=== PATIENT | female | born 1990 | race American Indian/Alaskan Native ===

== ENCOUNTER 2020-08-14 16:43 | Inpatient (IN) | payer SELFPAY ==
[~2020-08-14 16:43] MED LIST: AMIODARONE 150 MG/3 ML INJ IV ONE; CALCIUM CHLORIDE 1,000 MG/10 ML SYRINGE IV ONE; DOPamine/D5W 800 MG/250 ML DRIP IV ONE; EPINEPHrine 1 MG/10 ML SYRINGE IV ONE; EPINEPHrine 1 MG/10 ML SYRINGE ONE; NALOXONE 2 MG/2 ML INJ ONE; SODIUM BICARB 8.4% 50 MEQ/50 ML SYRINGE IV ONE
[2020-08-14] MEDS ORDERED: EPINEPHrine 1 MG/10 ML SYRINGE IV ONE ×3 (16:54→20:08)
[2020-08-14] MEDS ORDERED: DOPamine/D5W 800 MG/250 ML 800 MG/250 ML BAG IV ONE (17:29)
[2020-08-14 17:52] LABS: Mean Corpuscular HGB Conc 29 % (30-34); Mean Corpuscular Volume 91 fl (79-97); Platelet Count 135 K/mm3 (140-440); Red Blood Count 5.01 M/mm3 (3.65-5.03)
[2020-08-14 18:01] LABS: Hematocrit 45.5 % (30.3-42.9); Hemoglobin 13.4 gm/dl (10.1-14.3)
[2020-08-14 18:15] LABS: Albumin 3.9 g/dL (3.9-5); Calcium 11.5 mg/dL (8.4-10.2)
--- NOTE | 2020-08-14 18:22 | XRay Report ---
XR chest 1V ap INDICATION / CLINICAL INFORMATION: intubation. COMPARISON: None available. FINDINGS: SUPPORT DEVICES: Endotracheal tube projects 7 cm above the gosia. HEART /PULMONARY VASCULATURE: No significant abnormality. LUNGS / PLEURA: Asymmetric airspace opacity within the left upper lung. Right lung is clear. No pleur al effusion. No pneumothorax. IMPRESSION: 1. Endotracheal tube projects 7 cm above the gosia. Consider advancement by approximately 3 cm. 2. Asymmetric airspace opacity within the left upper lung, may reflect atelectasis, edema or infiltra te. Signer Name: Erlin Gaming MD Signed: 08/14/2020 6:18 PM Workstation Name: [id number]
[2020-08-14] MEDS ORDERED: HEPARIN 10,000 UNITS/10 ML VIAL IV PRN ×2 (18:23→21:03)
[2020-08-14] MEDS ORDERED: SODIUM BICARB 8.4% 50 MEQ/50 ML SYRINGE IV ONE (18:26)
[2020-08-14] MEDS ORDERED: NALOXONE 2 MG/2 ML INJ IV ONE (18:31)
--- NOTE | 2020-08-14 18:41 | Emergency Department Report ---
ED General Adult HPI - General Chief complaint: Cardiac Arrest/CPR Stated complaint: CARDIAC ARREST Time Seen by Provider: 08/14/20 17:03 Source: EMS Mode of arrival: Stretcher Limitations: Other - History of Present Illness Initial comments: The patient presents to the emergency department via EMS status post cardiac arrest. Per EMS the call was made for unresponsive patient. Patient had discussed with her roommate that she was not feeling well and went to take a shower when the roommate noticed that she was in the shower for an extended period of time. The roommate went to check on the patient and found her passed out in the shower and unresponsive. Upon EMS arrival which is 20 minutes after the patient initially was found the patient was in V. tach thus the patient was shocked. Patient received 5 rounds of epinephrine and additional shock and had return of spontaneous circulation and was intubated upon arrival to the ED. -: Sudden Severity scale (0 -10): 0 Consistency: constant Improves with: none Worsens with: none Treatments Prior to Arrival: other (Intubation, chest compressions) - Related Data Allergies Allergy/AdvReac Type Severity Reaction Status Date / Time No Known Allergies Allergy Unverified 08/14/20 18:10 ED Review of Systems ROS: Stated complaint: CARDIAC ARREST Other details as noted in HPI Comment: Unobtainable due to pts medical conditions ED Past Medical Hx - Social History Smoking Status: Unknown if ever smoked ED Physical Exam - General Limitations: Other General appearance: other (Intubated) - Head Head exam: Present: atraumatic, normocephalic - Eye Eye exam: Present: other (No corneal reflex; pupils dilated). Absent: scleral icterus, conjunctival injection - ENT ENT exam: Present: mucous membranes moist - Neck Neck exam: Absent: lymphadenopathy - Respiratory Respiratory exam: Present: other (Breath sounds present bilaterally with bagging through ET tube) - Cardiovascular Cardiovascular Exam: Present: regular rate, normal rhythm, other - GI/Abdominal GI/Abdominal exam: Present: soft. Absent: distended - Extremities Exam Extremities exam: Absent: pedal edema - Neurological Exam Neurological exam: Present: other (3T) - Psychiatric Psychiatric exam: Present: other (Not able to assess due to the patient's condition) - Skin Skin exam: Present: dry, intact, normal color, other (Patient is cool to touch). Absent: warm, rash ED Course Vital Signs 08/14/20 08/14/20 08/14/20 16:42 16:43 16:46 Temperature 90 F L Pulse Rate 98 H 105 H Respiratory 14 9 L Rate Blood Pressure 106/89 106/89 Blood Pressure [Right] O2 Sat by Pulse Oximetry 08/14/20 08/14/20 08/14/20 17:00 17:16 17:30 Temperature Pulse Rate 103 H 103 H 106 H Respiratory 16 18 18 Rate Blood Pressure 171/128 171/128 67/31 Blood Pressure [Right] O2 Sat by Pulse 96 98 Oximetry 08/14/20 08/14/20 08/14/20 17:45 18:01 18:15 Temperature Pulse Rate 107 H 110 H 109 H Respiratory 18 14 0 L Rate Blood Pressure 130/101 76/35 108/45 Blood Pressure [Right] O2 Sat by Pulse 100 100 100 Oximetry 08/14/20 08/14/20 08/14/20 18:16 18:21 18:23 Temperature Pulse Rate 109 H 110 H Respiratory 18 18 Rate Blood Pressure 99/44 Blood Pressure 100/43 [Right] O2 Sat by Pulse 100 100 100 Oximetry 08/14/20 08/14/20 08/14/20 18:31 18:45 19:01 Temperature Pulse Rate 109 H 106 H 105 H Respiratory 16 18 18 Rate Blood Pressure 97/36 76/31 65/29 Blood Pressure [Right] O2 Sat by Pulse 100 100 100 Oximetry 08/14/20 08/14/20 08/14/20 19:35 19:45 20:01 Temperature Pulse Rate 105 H 107 H 92 H Respiratory 18 17 13 Rate Blood Pressure 64/31 58/23 49/21 Blood Pressure [Right] O2 Sat by Pulse 88 92 Oximetry 08/14/20 08/14/20 08/14/20 20:15 20:31 20:45 Temperature Pulse Rate 119 H 112 H 110 H Respiratory 24 18 15 Rate Blood Pressure 204/107 74/31 64/25 Blood Pressure [Right] O2 Sat by Pulse 92 97 100 Oximetry 08/14/20 08/14/20 08/14/20 21:01 21:15 21:31 Temperature Pulse Rate 108 H 118 H 117 H Respiratory 16 12 14 Rate Blood Pressure 56/28 57/42 94/30 Blood Pressure [Right] O2 Sat by Pulse 98 90 90 Oximetry 08/14/20 08/14/20 08/14/20 21:45 22:00 22:13 Temperature Pulse Rate 118 H 115 H 73 Respiratory 16 8 L Rate Blood Pressure 69/34 58/32 146/127 Blood Pressure [Right] O2 Sat by Pulse 94 89 86 Oximetry 08/14/20 08/14/20 08/14/20 22:15 22:31 22:45 Temperature Pulse Rate 114 H 74 129 H Respiratory 18 18 74 H Rate Blood Pressure 72/29 146/127 158/14 Blood Pressure [Right] O2 Sat by Pulse 89 89 69 L Oximetry - Central Line Placement Right Femoral Consent Obtained: verbal consent Time Out Performed: Yes MD Prep: mask, gown, gloves Central Line Prep: Chlorhexidine scrub Ultrasound Used for Placement: No Central Line Lumen Inserted: triple Reason for Insertion: Emergency Venous Access Central Line Position: good blood return, all ports aspirated, flus, sutured in place with 2-0 Dressing Applied: Tegaderm Patient Tolerated Procedure: well Complications: none ED Medical Decision Making - Lab Data Result diagrams: 08/14/20 21:21 08/14/20 20:20 Patient arrived to the emergency department with a pulse and proceeded to lose her pulse 3 times during her initial presentation resuscitation. Each episode of pulselessness was followed by return of spontaneous circulation. Please see code sheet for details. Dopamine drip was started - EKG Data -: EKG Interpreted by Ok Rate: tachycardia - EKG Data Interpretation: other (Atrial flutter, PVCs, nonspecific ST-T wave a bnormalities) - Radiology Data Radiology results: report reviewed - Medical Decision Making On patient's arrival the patient was intubated by EMS and had a pulse The patient coded 5 times in the ED In between the patient had return of spontaneous circulation CT of the chest was obtained that showed that the patient had right-sided PEs and right-sided pneumonia. Discussed the patient with Dr. Hancock for evaluation of EKOS but due to the patient's finding on CT and her stability we decided that the patient was not a candidate for that procedure. After review of the patient's CTA of the chest patient was admitted to the hospitalist. Orders were written for the patient to be admitted upstairs the patient unfortunately coded again The family was allowed to come back to see the patient and were present during times when the patient was pulseless Please see code sheet for further details Patient received a bolus of TPA after discussion with the mom and dad Time of was 2254 Critical Care Time: Yes Critical care time in (mins) excluding proc time.: 120 Critical care attestation.: If time is entered above; I have spent that time in minutes in the direct care of this critically ill patient, excluding procedure time. Critical Care Time: Critical care time spent speaking to multiple family members about the patient as well as multiple specialist. Patient coded at least 8 times in the emergency department ED Disposition Clinical Impression: Cardiac arrest, Pulmonary embolus, Pneumonia, Elevated troponin Disposition: DC-20 Is pt being admited?: No Does the pt Need Aspirin: No Condition: Critical
[2020-08-14 18:42] LABS: Anisocytosis Few; Total Cells Counted 100
[2020-08-14] MEDS ORDERED: NORepinephrine/NS 4 MG-250 ML 4 MG/250 ML BAG IV ONE (18:44)
[2020-08-14 18:45] LABS: Chol/HDL Ratio 2.28 %
[2020-08-14] MEDS ORDERED: NORepinephrine/NS 4 MG-250 ML 4 MG/250 ML BAG IV SCH (19:00)
[2020-08-14 19:10] LABS: INR > 17.67 (0.87-1.13); Partial Thromboplastin Time < 20.0 Sec. (24.2-36.6)
--- NOTE | 2020-08-14 19:58 | Cat Scan Report ---
CT head/brain wo con INDICATION / CLINICAL INFORMATION: 29 years Female; Post cardiac arrest. TECHNIQUE: Routine CT head without contrast. All CT scans at this location are performed using CT dos e reduction for ALARA by means of automated exposure control. COMPARISON: None. FINDINGS: BRAIN / INTRACRANIAL CONTENTS: There is diffuse a cerebral edema with notable loss of the pan-white matter differentiation in effacement of the cerebral sulci. Additionally, there is also notable effac ement of the basal cisterns worrisome for developing herniation. The diffuse edema results in relative increased attenuation projected along the vascular structures. There is no clear CT evidence of acute intracranial hemorrhage. ORBITS: No significant abnormality of visualized orbits. SINUSES / MASTOIDS: The patient is intubated with associated opacification of the visualized nasal ca vities. There is a small air-fluid level along the posterior right sphenoid sinus. CRANIOCERVICAL JUNCTION: No significant abnormality. ADDITIONAL FINDINGS: None. IMPRESSION: 1. The findings are compatible with marked diffuse cerebral edema with associated mass effect as deta iled above. The study was specified as stat and dictated on an emergent basis at 6:51 PM Central standard time. Signer Name: Raghu Cardoso MD Signed: 08/14/2020 7:53 PM Workstation Name: [id number]
--- NOTE | 2020-08-14 20:05 | Cat Scan Report ---
CTA CHEST WITH CONTRAST INDICATION / CLINICAL INFORMATION: Post cardiac arrest. TECHNIQUE: Axial CT images were obtained through the chest after injection of IV contrast. 3 plane MO P and/or 3D reconstructions were produced. All CT scans at this location are performed using CT dose reduction for ALARA by means of automated exposure control. COMPARISON: None available. FINDINGS: The thoracic aorta is normal in caliber. No evidence of dissection. There is cardiac enlargement. No pericardial effusion. There are filling defects within the right segmental and subsegmental pulmonary arteries, greatest within the right lower lobe. No discrete filling defects identified on the left. There is asymmetric enlargement of the right ventricle suggesting right heart strain (RV/LV ratio mell sures 1.74). Endotracheal tube terminates above the gosia. There is debris seen throughout the tracheobronchial t ree, most pronounced within the left mainstem bronchus and left upper and lower lobe bronchi. Dense a irspace consolidation is present within the left upper lobe, less so at the left lower lobe. Prominen t groundglass opacities are also present within the left upper lobe. No pleural effusion or pneumotho rax. No acute osseous findings. IMPRESSION: 1. Acute right segmental and subsegmental pulmonary emboli, greatest within the right lower lobe. The re is also evidence of right heart strain. 2. Debris/secretions within the trachea and bilateral bronchi, more pronounced in the left. There are airspace consolidations within the left upper lobe, less so within the left lower lobe and right caridad g. Findings most likely reflect combination of aspiration and atelectasis. 3. Endotracheal tube terminates above the gosia. Findings were discussed with Dr. Holbrook by phone on 08/14/2020 at 7:00 PM. Signer Name: Erlin Gaming MD Signed: 08/14/2020 8:00 PM Workstation Name: [id number]
--- NOTE | 2020-08-14 20:06 | Cat Scan Report ---
CT ABDOMEN AND PELVIS WITH CONTRAST INDICATION / CLINICAL INFORMATION: Post cardiac arrest. TECHNIQUE: Axial CT images were obtained through the abdomen and pelvis after IV contrast. All CT sc ans at this location are performed using CT dose reduction for ALARA by means of automated exposure c ontrol. COMPARISON: None available. FINDINGS: Findings the lung bases are detailed separately. There is prominent periportal edema. Liver is otherwise unremarkable. No evidence of cholecystitis. N o biliary dilatation. Pancreas, spleen, and adrenals are unremarkable. Kidneys enhance symmetrically. No hydronephrosis. Bladder is decompressed. Prominent endometrial flui d/thickening in the uterus is likely physiologic. No suspicious adnexal mass. There is gaseous disten tion of the stomach and multifocal gas distention of multiple loops of small bowel throughout the abd omen and pelvis. There is no significant wall thickening or inflammatory stranding. Moderate stool wi thin the colon. No colonic wall thickening. No free air, free fluid, or focal fluid collection. No acute osseous findings. IMPRESSION: 1. Scattered areas of gas distended stomach and small bowel, likely reflect ileus. 2. Nonspecific periportal edema, most likely related to fluid resuscitation. 3. Other incidental findings as above. Signer Name: Erlin Gaming MD Signed: 08/14/2020 8:02 PM Workstation Name: [id number]
[2020-08-14] MEDS ORDERED: ALTEPLASE 100 MG INJ KIT ONE ×2 (20:11→22:31)
--- NOTE | 2020-08-14 20:35 | History and Physical Report ---
History of Present Illness Chief complaint: Unresponsive History of present illness: 29 YO Female with No PMH presents to ED for evaluation. Patient is intubated, sedated and on ventilatory support at the time my evaluation and unable to provide history. Patient history provided by family who is at bedside during ex am and interview. As per family patient was found down and unresponsive by her roommate today. EMS was notified and upon arrival the patient was found to be in ventricular fibrillation arrest. Patient treated in accordance with ACLS protocol with eventual return of perfusing cardiac rhythm. Patient experience multiple episodes of cardiac arrest in route to [facility]. Patient transported to [facility] for further care and evaluation of the aforementioned symptoms. Patient seen and evaluated in the emergency department. All lab and imaging studies reviewed. Patient found to have anoxic brain injury, acute hypoxemic respiratory failure, as well as suspected aspiration pneumonia complicated by sepsis, right pulmonary embolism. Vascular surgery consulted. Patient deemed not a candidate for EKOS therapy. Critical care team consulted. Patient admitted to ICU and initiated on sepsis protocol. No reports of fever, chills, chest pain, palpitation, adductive cough, skin rash, recent ill contacts, or known exposure to COVID-19. Advanced care planning conducted. Patient has poor prognosis. Patient family made aware., Past History Past Medical History: No medical history, other (Reviewed) Past Surgical History: No surgical history, Other (Reviewed) Social history: single. denies: smoking, alcohol abuse, prescription drug abuse Family history: no significant family history, other (Reviewed) Medications and Allergies Allergies Allergy/AdvReac Type Severity Reaction Status Date / Time No Known Allergies Allergy Unverified 08/14/20 18:10 Active Meds: Active Medications Heparin Sodium (Porcine) (Heparin 10,000 Units/10 Ml Vial) 4,300 unit 40 unit/kg (4300 unit) IV Q6H PRN PRN Reason: Anti-Xa Assay less than 0.1 un Dopamine HCl/Dextrose (Intropin Drip 800 Mg/D5w 250 Ml) 800 mg in 250 mls @ 4.038 mls/hr IV TITR ONE; Protocol Stop: 08/17/20 07:23 Last Titration: 08/14/20 17:30 Dose: 20 mcg/kg/min, 40.381 mls/hr Documented by: Norepinephrine (Levophed Drip 4 Mg/Ns 250 Ml) 4 mg in 250 mls @ 7.5 mls/hr IV TITR MARCUS; Protocol Last Titration: 08/14/20 19:42 Dose: 20 mcg/min, 75 mls/hr Documented by: Review of Systems ROS unobtainable: due to endotracheal tube Exam - Constitutional Vitals: Temp Pulse Resp BP Pulse Ox 90 F L 119 H 24 204/107 92 08/14/20 16:43 08/14/20 20:15 08/14/20 20:15 08/14/20 20:15 08/14/20 20:15 General appearance: Present: severe distress - EENT Eyes: Present: mydriasis ENT: hearing decreased - Neck Neck: Present: supple, normal ROM - Respiratory Respiratory effort: labored Respiratory: bilateral: diminished, rhonchi - Cardiovascular Heart Sounds: Present: S1 & S2. Absent: rub, click - Extremities Extremity abnormal: edema Peripheral Pulses: abnormal (Capillary refill greater than 3.5 seconds) - Abdominal General gastrointestinal: Present: soft, non-tender, non-distended, normal bowel sounds Female genitourinary: Present: normal - Integumentary Integumentary: Present: clear, dry - Musculoskeletal Musculoskeletal: generalized weakness - Psychiatric Psychiatric: no appropriate mood/affect, no intact judgment & insight, no memory intact - Neurologic Neurologic: no CNII-XII intact, focal deficits, no moves all extremities, no gait normal HEART Score - HEART Score Troponin: Troponin T 0.927 ng/mL (0.00-0.029) H* 08/14/20 17:38 Results - Labs CBC & Chem 7: 08/14/20 17:44 08/14/20 17:38 Labs: Abnormal lab results 08/14/20 08/14/20 08/14/20 Range/Units 17:38 17:38 17:38 WBC (4.5-11.0) K/mm3 Hct (30.3-42.9) % MCH (28-32) pg MCHC (30-34) % RDW (13.2-15.2) % Plt Count (140-440) K/mm3 Lymphocytes % (Manual) (13.4-35.0) % Lymphocytes # (Manual) (1.2-5.4) K/mm3 PT (12.2-14.9) Sec. INR (0.87-1.13) APTT (24.2-36.6) Sec. Potassium 5.8 H (3.6-5.0) mmol/L Chloride 96.6 L (98-107) mmol/L Carbon Dioxide 11 L (22-30) mmol/L Creatinine 2.1 H (0.6-1.2) mg/dL Glucose 304 H (65-100) mg/dL Calcium 11.5 H (8.4-10.2) mg/dL Magnesium 4.00 H (1.7-2.3) mg/dL AST 2423 H (5-40) units/L ALT 1819 H (7-56) units/L Alkaline Phosphatase 132 H (35-129) units/L Troponin T 0.927 H* (0.00-0.029) ng/mL Triglycerides 186 H (2-149) mg/dL 08/14/20 08/14/20 Range/Units 17:44 18:26 WBC 12.6 H (4.5-11.0) K/mm3 Hct 45.5 H (30.3-42.9) % MCH 27 L (28-32) pg MCHC 29 L (30-34) % RDW 17.0 H (13.2-15.2) % Plt Count 135 L (140-440) K/mm3 Lymphocytes % (Manual) 53.0 H (13.4-35.0) % Lymphocytes # (Manual) 6.7 H (1.2-5.4) K/mm3 PT < 10.0 L (12.2-14.9) Sec. INR > 17.67 H* (0.87-1.13) APTT < 20.0 L (24.2-36.6) Sec. Potassium (3.6-5.0) mmol/L Chloride (98-107) mmol/L Carbon Dioxide (22-30) mmol/L Creatinine (0.6-1.2) mg/dL Glucose (65-100) mg/dL Calcium (8.4-10.2) mg/dL Magnesium (1.7-2.3) mg/dL AST (5-40) units/L ALT (7-56) units/L Alkaline Phosphatase (35-129) units/L Troponin T (0.00-0.029) ng/mL Triglycerides (2-149) mg/dL Assessment and Plan - Patient Problems (1) Sepsis Current Visit: Yes Status: Acute Plan to address problem: Sepsis protocol: CBC, CMP, IV antibiotic therapy, IV pressor support, maintain mean arterial pressure greater than or equal to 65, blood culture, IV fluid resuscitation therapy, chest x-ray, urinalysis The high probability of a clinically significant, sudden or life threatening deterioration of the [cardiac, pulmonary, neuro, renal,] system(s) required my full and direct attention, intervention and personal management. The aggregate critical care time was [90] minutes. This time is in addition to time spent performing reported procedures but includes the following: [x] Data Review and interpretation [x] Patient assessment and monitoring of vital signs [x] Documentation [x] Medication orders and management (2) Cardiac arrest Current Visit: Yes Status: Acute Plan to address problem: Patient treated" with ACLS protocol with return of perfusing cardiac rhythm. Patient experienced multiple cardiac arrest. Patient has poor prognosis. (3) Acute hypoxemic respiratory failure Current Visit: Yes Status: Acute Plan to address problem: Patient intubated, on ventilatory support: Wean vent as tolerated, daily spontan eous breathing trial, sedation holiday, pulmonary team consulted, (4) Pneumonia Current Visit: Yes Status: Acute Plan to address problem: Pneumonia protocol: IV antibiotic therapy, CBC, CMP, chest x-ray, IV antibiotic therapy, supportive care. (5) Right pulmonary embolus Current Visit: Yes Status: Acute Plan to address problem: Vascular surgery service consulted, patient not a candidate for lytic therapy. (6) Anoxic brain injury Current Visit: Yes Status: Acute Plan to address problem: Patient pupils are fixed and dilated with no sign of neurologic function. Patient has poor prognosis. Patient family made aware. (7) Acidosis Current Visit: Yes Status: Acute Plan to address problem: IV bicarbonate therapy, supportive care (8) Shock liver Current Visit: Yes Status: Acute Plan to address problem: Elevated liver function tests in light of multiple cardiac arrest. Suspect shock liver, poor prognosis. (9) DVT prophylaxis Current Visit: Yes Status: Acute Plan to address problem: SCD to bilateral lower extremities while in bed (10) Advance care planning Current Visit: Yes Status: Acute Plan to address problem: Disease education conducted, care plan discussed, prognosis discussed, patient remains full code, patient family acknowledge understanding and agreement with current care plan. +30 minutes.
[2020-08-14] MEDS ORDERED: ACETAMINOPHEN 325 MG TAB PO PRN (20:36)
[2020-08-14] MEDS ORDERED: ALBUTEROL 2.5 MG/3 ML NEBU IH PRN (20:36)
[2020-08-14] MEDS ORDERED: HYDROmorphone 1 MG/1 ML INJ IV PRN (20:36)
[2020-08-14 20:56] LABS: Creatine Kinase MB 149.6 ng/mL (0.0-4.0)
[2020-08-14] MEDS ORDERED: cefTRIAXone/NS 2 GM/100 ML 2 GM/100 ML BAG IV SCH (21:00)
[2020-08-14] MEDS ORDERED: AZITHROMYCIN/NS 500 MG/250 ML 500 MG/250 ML BAG IV SCH (21:00)
[2020-08-14] MEDS ORDERED: SODIUM CHLORIDE 0.9% 1000 ML IV SOLN IV ONE (21:00)
[2020-08-14 21:10] LABS: C-Reactive Protein 1.1 mg/dL (0.00-1.30)
[2020-08-14 21:45] LABS: Hematocrit 37.4 % (30.3-42.9); Hemoglobin 11.7 gm/dl (10.1-14.3)
[2020-08-14] MEDS ORDERED: HEPARIN/ 0.45% NACL DRIP 25,000 UNIT/500 ML BAG IV SCH (22:00)
[2020-08-14 22:17] LABS: INR > 17.67 (0.87-1.13); Partial Thromboplastin Time < 20.0 Sec. (24.2-36.6)
[2020-08-14] MEDS ORDERED: ALTEPLASE 100 MG INJ KIT IV ONE (22:32)
[2020-08-14 23:58] VITALS: BP 158/14
--- NOTE | 2020-08-15 09:49 | Electrocardiograph Report ---
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
== END 2020-08-14 22:54 | DRG 871 ==
LOC: ED 16:43 → CC1 20:37
PROVIDERS: ADMIT Internal Medicine; ATTEND Internal Medicine
PROC: 06HY33Z Insertion of Infusion Device into Lower Vein, Percutaneous Approach (ICD-10-PCS; principal; 2020-08-14)
PROC: 5A1935Z Respiratory Ventilation, Less than 24 Consecutive Hours (ICD-10-PCS; 2020-08-14)
DX: A41.9 Sepsis, unspecified organism (principal); J96.01 Acute respiratory failure with hypoxia; J18.9 Pneumonia, unspecified organism; I26.99 Other pulmonary embolism without acute cor pulmonale; K72.00 Acute and subacute hepatic failure without coma; N17.9 Acute kidney failure, unspecified; G93.1 Anoxic brain damage, not elsewhere classified; I46.9 Cardiac arrest, cause unspecified; Z79.899 Other long term (current) drug therapy
CPT/HCPCS: 36415; 70450; 71045; 71275; 74177; 80053; 80061; 82550; 82553; 82728; 82947; 83615; 83735; 83880; 84145; 84484; 85007; 85014; 85018; 85025; 85049; 85379; 85610; 85730; 86140; 86850; 86900; 86901; 87040; 93005; 94002; 96365; 96375; G0378; J0171; J0282; J0696; J1265; J2310; J2997; J7030; Q9967